=== PATIENT | male | born 1990 | race Caucasian/White ===

== ENCOUNTER 2016-11-21 12:04 | Emergency (ER) | payer SELFPAY ==
[~2016-11-21] VITALS: Ht 193 cm; Wt 80.0 kg
[2016-11-21 12:06] VITALS: BP 134/71; PULSE 83; RESP 12; TEMP 98; O2SAT 98
[2016-11-21] MEDS ORDERED: IBUP800T23 PO (12:53)
[2016-11-21] MEDS ORDERED: CEPH-460 PO (12:53)
[2016-11-21] MEDS ORDERED: BACT800T5 PO (12:53)
--- NOTE | 2016-11-21 12:53 | PD ---
HPI Chief Complaint: Skin Problem Time Seen by Provider: 12:49 Travel History International Travel<30 days: No Contact w/Intl Traveler<30days: No Traveled to known affect area: No History of Present Illness HPI 26-year-old male presents to emergency Department with complaint of a wound to his left alegria 4 days. Started out as a pimple-like lesion that got bigger and broke open and drained. When he woke up this morning he noticed another one to his left upper alegria that is draining also. Has been applying topical antibiotic ointment and keeping the area clean. Has not taken any medications to the patient's symptoms. Denies fever, chills, nausea, vomiting. Denies paresthesias or loss of sensation, decreased range of motion, decreased strength to the affected extremity. No known aggravating or relieving factors. No known allergies. Denies significant past medical history. No other modifying factors or associated signs and symptoms. PFSH Past Medical History Medical History: Denies Significant Hx Social History Tobacco Use: Yes Allergies-Medications (Allergen,Severity, Reaction): Coded Allergies: No Known Allergies (Unverified , 11/21/16) Reported Meds & Prescriptions Reported Meds & Active Scripts Active Ibuprofen 800 Mg Tab 800 Mg PO Q6HR PRN Bactrim DS (Sulfamethoxazole-Trimethoprim) 800-160 Mg Tab 1 Tab PO BID 10 Days Keflex (Cephalexin) 500 Mg Cap 500 Mg PO Q6H 10 Days Review of Systems Except as stated in HPI: all other systems reviewed are Neg Physical Exam Narrative GENERAL: Well-nourished, well-developed male patient, in no acute distress; afebrile, nontoxic-appearing SKIN: There is an indurated area to the left mid alegria which measures approximately 1-1/2 cm in diameter; this area is nonfluctuant and there is no drainage; the areas scabbed over; there is a zone of inflammation around it. Approximately 0.5 cm indurated area to the back is draining purulent drainage; no inflammation surrounding. HEAD: Atraumatic. Normocephalic. EYES: Pupils equal and round. No scleral icterus. No injection or drainage. ENT: Mucosa pink and moist. Airway patent. NECK: Trachea midline. CARDIOVASCULAR: Regular rate. RESPIRATORY: No accessory muscle use. GASTROINTESTINAL: Flat. MUSCULOSKELETAL: No obvious deformities. No clubbing. No cyanosis. No edema. NEUROLOGICAL: Awake and alert. Oriented 3. No obvious cranial nerve deficits. Motor grossly within normal limits. Normal speech. PSYCHIATRIC: Appropriate mood and affect; insight and judgment normal. Data Data Last Documented VS Vital Signs Date Time Temp Pulse Resp B/P Pulse Ox O2 Delivery O2 Flow Rate FiO2 11/21/16 12:06 98.0 83 12 134/71 98 Room Air Orders Wound Culture And Gram Stain (11/21/16 12:53) Tetanus/Diphtheria Tox Adult (Tetanus/Di (11/21/16 13:00) MDM Medical Decision Making Medical Screen Exam Complete: Yes Emergency Medical Condition: Yes Medical Record Reviewed: Yes Differential Diagnosis Abscess, cellulitis, wound infection Narrative Course 26-year-old male with an abscess to the left mid alegria that is scabbed over and had surgery drained with an area of cellulitis surrounding. There is another small abscess that is draining purulent drainage to the left upper alegria. The patient is afebrile. He denies fever, chills, nausea, vomiting. Would culture pending. Keflex, Bactrim, ibuprofen prescribed for home. Patient is medically cleared and stable for discharge. Discussed reasons to return to the emergency department. Instructed patient to follow up with primary care provider. Patient agrees with treatment plan. The patients vital signs are stable and the patient is stable for outpatient follow-up and treatment. Patient discharged home, stable and in no acute distress. Diagnosis Primary Impression: Cellulitis and abscess of leg Referrals: Primary Care Physician Patient Instructions: Abscess (ED), Cellulitis (ED), General Instructions Departure Forms: Tests/Procedures, Work Release Enter return to work date: Nov 22, 2016 Additional Instructions: Complete full course of antibiotics Warm compresses to the affected area Keep area clean and dry Ibuprofen or Tylenol as directed and as needed for pain and inflammation Follow-up with primary care provider Return to emergency department immediately with worsening of symptoms Med/Other Pt SpecificInfo: Prescription(s) given Scripts Ibuprofen 800 Mg Mrb166 Mg PO Q6HR PRN (PAIN) #30 TAB Ref 0 Prov:Humaira Childers SLICING MACHINE OPERATOR/TENDER 11/21/16 Sulfamethoxazole-Trimethoprim (Bactrim DS)800-160 Mg Tab1 Tab PO BID 10 Days Ref 0 Prov:Humaira Childers SLICING MACHINE OPERATOR/TENDER 1/24/17 Cephalexin (Keflex)500 Mg Xyl268 Mg PO Q6H 10 Days Ref 0 Prov:Humaira Childers 11/21/16 Disposition: 01 DISCHARGE HOME Condition: Stable Humaira Childers Nov 21, 2016 12:53
[2016-11-21] MEDS ORDERED: TETANUS/DIPHTHERIA TOXOID ADULT 0.5 ML VIAL IM ONE (13:00)
== END 2016-11-21 13:24 | disposition home or self-care (01) ==
LOC: NEPB 12:04
DX: L02.416 Cutaneous abscess of left lower limb (principal); L03.116 Cellulitis of left lower limb; B95.0 Streptococcus, group A, as the cause of diseases classified elsewhere; Z72.0 Tobacco use; Z23 Encounter for immunization
CPT/HCPCS: 87070; 90471; 90714

== ENCOUNTER 2018-03-30 18:25 | Emergency (ER) | payer SELFPAY ==
[~2018-03-30] VITALS: Ht 193 cm; Wt 85.0 kg
[~2018-03-30 18:25] MED LIST: BACT800T5 PO; CEPH-460 PO; IBUP1TAB7 PO
[2018-03-30 18:34] VITALS: BP 148/80; PULSE 96; RESP 16; TEMP 97.7; O2SAT 97
--- NOTE | 2018-03-30 18:39 | PD ---
HPI Chief Complaint: Skin Problem Time Seen by Provider: 18:39 Travel History International Travel<30 days: No Contact w/Intl Traveler<30days: No Traveled to known affect area: No History of Present Illness HPI 27-year-old male came to the emergency room with history with history of right wrist abscess. Patient is an IV drug abuser and says that he shot heroin about 4-5 days ago in that site and since then has noticed redness and swelling. Today he tried to puncture the skin with a needle and got some blood out. No history of fever or chills. Vital signs are stable. Patient is a regular IV drug abuser. PFSH Past Medical History Narrative Medical List of his past medical, surgical, social and family history is reviewed from the nursing note. Diminished Hearing: No Social History Alcohol Use: No Tobacco Use: Yes (1 PPD) Substance Use: No Allergies-Medications (Allergen,Severity, Reaction): Coded Allergies: No Known Allergies (Unverified Adverse Reaction, Unknown, 03/30/18) Comments No known drug allergies. Reported Meds & Prescriptions Reported Meds & Active Scripts Active Bactrim DS (Sulfamethoxazole-Trimethoprim) 800-160 Mg Tab 1 Tab PO BID Clindamycin (Clindamycin HCl) 150 Mg Cap 150 Mg PO Q6H 10 Days Narrative Medication List of her home medication reviewed from the nursing note Review of Systems Except as stated in HPI: all other systems reviewed are Neg Physical Exam Narrative GENERAL: Awake, alert, mildest SKIN: Focused skin assessment warm/dry. 2 x 2 cm erythematous swelling on the right wrist radial aspect. This is nonpulsatile. No significant fluctuance can be appreciated. Minimally tender. HEAD: Atraumatic. Normocephalic. EYES: Pupils equal and round. No scleral icterus. No injection or drainage. ENT: No nasal bleeding or discharge. Mucous membranes pink and moist. NECK: Trachea midline. No JVD. CARDIOVASCULAR: Regular rate and rhythm. No murmur appreciated. RESPIRATORY: No accessory muscle use. Clear to auscultation. Breath sounds equal bilaterally. GASTROINTESTINAL: Abdomen soft, non-tender, nondistended. Hepatic and splenic margins not palpable. MUSCULOSKELETAL: No obvious deformities. No clubbing. No cyanosis. No edema. NEUROLOGICAL: Awake and alert. No obvious cranial nerve deficits. Motor grossly within normal limits. Normal speech. PSYCHIATRIC: Appropriate mood and affect; insight and judgment normal. Data Data Last Documented VS Vital Signs Date Time Temp Pulse Resp B/P (MAP) Pulse Ox O2 Delivery O2 Flow Rate FiO2 03/30/18 18:34 97.7 96 16 148/80 (102) 97 Orders Orders Complete Blood Count With Diff (03/30/18 18:47) Basic Metabolic Panel (Bmp) (03/30/18 18:47) Blood Culture (03/30/18 18:47) Wound Culture And Gram Stain (03/30/18 18:47) Sulfamet-Trimeth Ds 800-160 Mg (Bactrim (03/30/18 19:00) Clindamycin (Cleocin) (03/30/18 19:00) Ed Discharge Order (03/30/18 20:35) Labs Laboratory Tests Test 03/30/18 19:50 White Blood Count 10.2 TH/MM3 Red Blood Count 5.06 MIL/MM3 Hemoglobin 15.1 GM/DL Hematocrit 43.7 % Mean Corpuscular Volume 86.4 FL Mean Corpuscular Hemoglobin 29.8 PG Mean Corpuscular Hemoglobin Concent 34.5 % Red Cell Distribution Width 13.4 % Platelet Count 234 TH/MM3 Mean Platelet Volume 8.9 FL Neutrophils (%) (Auto) 72.6 % Lymphocytes (%) (Auto) 18.7 % Monocytes (%) (Auto) 6.4 % Eosinophils (%) (Auto) 2.0 % Basophils (%) (Auto) 0.3 % Neutrophils # (Auto) 7.4 TH/MM3 Lymphocytes # (Auto) 1.9 TH/MM3 Monocytes # (Auto) 0.6 TH/MM3 Eosinophils # (Auto) 0.2 TH/MM3 Basophils # (Auto) 0.0 TH/MM3 CBC Comment DIFF FINAL Differential Comment Blood Urea Nitrogen 10 MG/DL Creatinine 0.88 MG/DL Random Glucose 108 MG/DL Calcium Level 8.9 MG/DL Sodium Level 139 MEQ/L Potassium Level 4.4 MEQ/L Chloride Level 101 MEQ/L Carbon Dioxide Level 29.9 MEQ/L Anion Gap 8 MEQ/L Estimat Glomerular Filtration Rate 104 ML/MIN MDM Medical Decision Making Medical Screen Exam Complete: Yes Emergency Medical Condition: Yes Medical Record Reviewed: Yes Differential Diagnosis Abscess, cellulitis, infected hematoma Narrative Course 8:12 PM I did a bedside ultrasound which showed minimal collection subcutaneously. I decided to do a needle aspiration. Please refer to my procedure notes. Mostly blood was drained and some of it was sent for wound culture. Awaiting for blood test results currently. Patient was given p.o. Bactrim and clindamycin. If labs are within normal limit patient will be discharged home. Procedures Procedure Narrative Emergency department soft-tissue/musculoskeletal ultrasound was performed with patient consent. Linear probe was used in the transverse and sagittal views in the area of interest with evidence of small subcutaneous fluid collection Needle aspiration: The right wrist swelling skin was cleaned with alcohol swabs 2. 20-gauge needle with a 10 cc syringe was introduced at the maximum point of swelling and aspirated. Mostly blood about 4 mL was aspirated out. Pressure was applied to the area as the needle was taken out. The nurse put the dressed. Patient tolerated the procedure well. EKG Prior to Arrival: No Diagnosis Primary Impression: Cellulitis of wrist Additional Impression: IV drug abuse Referrals: [facility] Additional Instructions: IV drug abuse is extremely dangerous. Take the medication as per the prescription direction. He should try checking in for a detox in a place like [facility]. Return to the ER if condition worsens or any other new concerns. Apply warm compress to the area to have the antibiotic work better. Med/Other Pt SpecificInfo: Prescription(s) given Scripts Sulfamethoxazole-Trimethoprim (Bactrim DS) 800-160 Mg Tab 1 TAB PO BID for Infection, #20 TAB 0 Refills Prov: Estefany Ramos MD 03/30/18 Clindamycin (Clindamycin) 150 Mg Cap 150 MG PO Q6H for Infection for 10 Days, #40 CAP 0 Refills Prov: Estefany Ramos MD 03/30/18 Disposition: 01 DISCHARGE HOME Condition: Stable Estefany Ramos MD Mar 30, 2018 18:39
[2018-03-30] MEDS ORDERED: CLINDAMYCIN 150 MG CAP PO ONE (19:00)
[2018-03-30] MEDS ORDERED: SULFAMETHOXAZOLE-TRIMETHOPRIM DS 800-160 MG TAB PO ONE (19:00)
[2018-03-30 20:17] LABS: AUTOMATED NEUTROPHIL # 7.4 TH/MM3 (1.8-7.7); BASOPHIL % 0.3 % (0.0-2.0); EOSINOPHIL # 0.2 TH/MM3 (0-0.4); HEMATOCRIT 43.7 % (39.0-51.0); HEMOGLOBIN 15.1 GM/DL (13.0-17.0); LYMPH % 18.7 % (9.0-44.0); LYMPHOCYTE # 1.9 TH/MM3 (1.0-4.8); MEAN CELL VOLUME 86.4 FL (80.0-100.0); MEAN CORPUSCULAR HEMOGLOBIN 29.8 PG (27.0-34.0); MEAN CORPUSCULAR HGB CONC 34.5 % (32.0-36.0); MEAN PLATELET VOLUME 8.9 FL (7.0-11.0); MONO % 6.4 % (0.0-8.0); MONOCYTE # 0.6 TH/MM3 (0-0.9); NEUT % 72.6 % (16.0-70.0); PLATELET COUNT 234 TH/MM3 (150-450); RED BLOOD COUNT 5.06 MIL/MM3 (4.50-5.90); RED CELL DISTRIBUTION WIDTH 13.4 % (11.6-17.2); WHITE BLOOD COUNT 10.2 TH/MM3 (4.0-11.0)
[2018-03-30 20:32] LABS: BICARBONATE 29.9 MEQ/L (21.0-32.0); CALCIUM 8.9 MG/DL (8.5-10.1); CREATININE 0.88 MG/DL (0.60-1.30)
[2018-03-30] MEDS ORDERED: BACT800T5 PO (20:37)
[2018-03-30] MEDS ORDERED: CLIN150C14 PO (20:37)
== END 2018-03-30 20:51 | disposition home or self-care (01) ==
LOC: NEPD 18:25
DX: L03.113 Cellulitis of right upper limb (principal); F19.10 Other psychoactive substance abuse, uncomplicated; F17.200 Nicotine dependence, unspecified, uncomplicated
CPT/HCPCS: 20605; 80048; 85025; 87040; 87070; 87205